=== PATIENT | female | born 1990 | race American Indian/Alaskan Native ===

== ENCOUNTER 2016-11-17 19:32 | Emergency (ER) | payer OTHER ==
[2016-11-17 19:42] VITALS: BP 108/67; TEMP 97.7; BMI 25.0
--- NOTE | 2016-11-17 20:20 | PDOC ---
History of Present Illness - General History Source: Patient Exam Limitations: No Limitations - History of Present Illness Initial Comments: 11/17/16 20:21 The patient is a 26 year old female, who is currently 16-17 weeks with no significant past medical history who presents to the emergency department with dysfunctional vaginal bleeding for today. She notes having red clots on her tissue paper after using the bathroom earlier today. She denies using any pads since the event. LMP was 07/11/16. The patient notes having flu like symptoms, including a cough, about a week ago. She denies recent fevers, chills, headache or dizziness. She denies recent nausea, vomit, diarrhea or constipation. Allergies: NKA Past surgical history: None reported. Social history: Nonsmoker. Denies EtOH use and recreational drug use. Primary Care Physician: Dr.Chumaceiro MARCUM: <Oumar Agarwal - Last Filed: 11/17/16 20:29> <Luiza Andujar - Last Filed: 11/19/16 02:17> - General Chief Complaint: Vaginal Bleeding Stated Complaint: 16WKS/VAGINAL BLEEDING Time Seen by Provider: 11/17/16 19:42 Past History <Oumar Agarwal - Last Filed: 11/17/16 20:29> - Past Medical History Asthma: No Cancer: No Cardiac Disorders: No Diabetes: No HTN: No Seizures: No Thyroid Disease: No - Immunization History Immunization Up to Date: Yes - Psycho/Social/Smoking Cessation Hx Suicidal Ideation: No Smoking History: Never smoked Have you smoked in the past 12 months: No Hx Alcohol Use: No Drug/Substance Use Hx: No Hx Substance Use Treatment: No <Luiza Andujar - Last Filed: 11/19/16 02:17> - Past Medical History Allergies/Adverse Reactions: Allergies Allergy/AdvReac Type Severity Reaction Status Date / Time No Known Drug Allergies Allergy Verified 02/27/15 13:26 Home Medications: Ambulatory Orders NK [No Known Home Medication] 11/17/16 Review of Systems - Review of Systems Able to Perform ROS?: Yes Comments:: 11/17/16 20:24 CONSTITUTIONAL: Absent: fever, chills, diaphoresis, generalized weakness, malaise, loss of appetite HEENT: Absent: rhinorrhea, nasal congestion, throat pain, throat swelling, difficulty swallowing, mouth swelling, ear pain, eye pain, visual Changes CARDIOVASCULAR: Absent: chest pain, syncope, palpitations, irregular heart rate, lightheadedness , peripheral edema RESPIRATORY: Absent: cough, shortness of breath, dyspnea with exertion, orthopnea, wheezing, stridor, hemoptysis GASTROINTESTINAL: Absent: abdominal pain, abdominal distension, nausea, vomiting, diarrhea, constipation, melena, hematochezia GENITOURINARY: +dysfunctional vaginal bleeding. Absent: dysuria, frequency, urgency, hesitancy , hematuria, flank pain, genital pain MUSCULOSKELETAL: Absent: myalgia, arthralgia, joint swelling SKIN: Absent: rash, itching, pallor HEMATOLOGIC/IMMUNOLOGIC: Absent: easy bleeding, easy bruising, lymphadenopathy, frequent infections ENDOCRINE: Absent: unexplained weight gain, unexplained weight loss, heat intolerance, cold intolerance NEUROLOGIC: Absent: headache, focal weakness or paresthesias, dizziness, unsteady gait, seizure, mental status changes, bladder or bowel incontinence PSYCHIATRIC: Absent: anxiety, depression, suicidal or homicidal ideation, hallucinations. <Oumar Agarwal - Last Filed: 11/17/16 20:29> *Physical Exam - Vital Signs Last Vital Signs Temp Pulse Resp BP Pulse Ox 97.7 F 100 H 18 108/67 99 11/17/16 19:36 11/17/16 19:36 11/17/16 19:36 11/17/16 19:36 11/17/16 19:36 - Physical Exam Comments: 11/17/16 20:29 GENERAL: Well developed, well nourished. Awake and alert x 3. No acute distress. HEENT: Normocephalic, atraumatic. PERRLA, EOMI. No conjunctival pallor. Sclera are non- icteric. Moist mucous membranes. Oropharynx is clear. NECK: Supple. Full ROM. No JVD. Carotid pulses 2+ and symmetric, without bruits. No thyromegaly. No lymphadenopathy. CARDIOVASCULAR: Regular rate and rhythm. No murmurs, rubs, or gallops. Distal pulses are 2+ and symmetric. PULMONARY: No evidence of respiratory distress. Lungs clear to auscultation bilaterally. No wheezing, rales or rhonchi. ABDOMINAL: +Perturbent belly. Soft. Non-tender.No rebound or guarding. No organomegaly. Normoactive bowel sounds. MUSCULOSKELETAL Normal range of motion at all joints. No bony deformities or tenderness. No CVA tenderness. EXTREMITIES: No cyanosis. No clubbing. No edema. No calf tenderness. SKIN: Warm and dry. Normal capillary refill. No rashes. No jaundice. NEUROLOGICAL: Alert, awake, appropriate. Cranial nerves 2-12 intact. No deficits to light touch and temperature in face, upper extremities and lower extremities. No motor deficits in the in face, upper extremities and lower extremities. Normoreflexic in the upper and lower extremities. Normal speech. Toes are down- going bilaterally. Gait is normal without ataxia. PSYCHIATRIC: Cooperative. Good eye contact. Appropriate mood and affect. <Oumar Agarwal - Last Filed: 11/17/16 20:29> - Vital Signs Last Vital Signs Temp Pulse Resp BP Pulse Ox 97.7 F 100 H 18 108/67 99 11/17/16 19:36 11/17/16 19:36 11/17/16 19:36 11/17/16 19:36 11/17/16 19:36 <Luiza Andujar - Last Filed: 11/19/16 02:17> Medical Decision Making - Medical Decision Making 11/19/16 02:16 Patient was also seen by the nurse practitioner who did ultrasound and found intrauterine with good heart beat. Patient is going to follow-up with MEDICAL AND HEALTH SERVICES MANAGER. <Luiza Andujar - Last Filed: 11/19/16 02:17> *DC/Admit/Observation/Transfer - Attestations Scribe Attestion: 11/17/16 20:24 Documentation prepared by Oumar Agarwal, acting as biomedical equipment support specialist for Luiza Andujar MD. <Oumar Agarwal - Last Filed: 11/17/16 20:29> <Luiza Andujar - Last Filed: 11/19/16 02:17> Diagnosis at time of Disposition: PCB (post coital bleeding) - Discharge Dispostion Disposition: HOME Condition at time of disposition: Stable - Patient Instructions Printed Discharge Instructions: DI for Vaginal Bleeding During Additional Instructions: Your Discharge Instructions: You must call primary care physician within 24 hours to arrange follow-up. Return to the Emergency Department with any new, persistent or worsening symptoms, for fever, chills, SOB, dizziness or any other concerning changes that may occur. F/W with OBS/MARKETING GRAPHICS SPECIALIST if worsening. Return to the ED if bleeding more than 1 pad per hour
[2016-11-17 21:02] LABS: URINE APPEARANCE CLEAR; URINE BILIRUBIN NEGATIVE (NEGATIVE); URINE BLOOD NEGATIVE (NEGATIVE); URINE COLOR YELLOW; URINE GLUCOSE (UA) NEGATIVE (NEGATIVE); URINE KETONE TRACE (NEGATIVE); URINE LEUK ESTERASE NEGATIVE (NEGATIVE); URINE NITRITE NEGATIVE (NEGATIVE); URINE PROTEIN NEGATIVE (NEGATIVE); URINE UROBILINOGEN NEGATIVE E.U./dl (0.2-1.0)
--- NOTE | 2016-11-17 21:19 | PDOC ---
History of Present Illness - General Chief Complaint: Vaginal Bleeding Stated Complaint: 16WKS/VAGINAL BLEEDING Time Seen by Provider: 11/17/16 19:42 History Source: Patient Exam Limitations: No Limitations - History of Present Illness Initial Comments: 11/17/16 21:14 Patient is a 26-year-old female G 3 P2 LMP July 11 complaining of vaginal spotting and lower abdominal crampy pain since this morning. States pain is in the left lower quadrant 8/10 and had bleeding after wiping. No pad change. Last sexual intercourse was this morning. Denies any dysuria. Also has a cough and a headache 1 week no fever PMD: Dr. Fischer PMHX: as above PSOCHx: neg cig, etoh, drug FamHx: noncontributory ALL: NKDA GENERAL/CONSTITUTIONAL: [No fever or chills. No weakness. No weight change.] HEAD, EYES, EARS, NOSE AND THROAT: [No change in vision. No ear pain or discharge. No sore throat.] CARDIOVASCULAR: [No chest pain or shortness of breath.] RESPIRATORY: [No cough, wheezing, or hemoptysis.] GASTROINTESTINAL: [No nausea, vomiting, diarrhea or constipation. No rectal bleeding.] GENITOURINARY: [No dysuria, frequency, or change in urination.] MUSCULOSKELETAL: [No joint or muscle swelling or pain. No neck or back pain.] SKIN AND BREASTS: [No rash or easy bruising.] NEUROLOGIC: [No headache, vertigo, loss of consciousness, or loss of sensation.] PSYCHIATRIC: [No depression or anxiety.] ENDOCRINE: [No increased thirst. No abnormal weight change.] HEMATOLOGIC/LYMPHATIC: [No anemia, easy bleeding, or history of blood clots.] ALLERGIC/IMMUNOLOGIC: [No hives or skin allergy. No latex allergy.] GENERAL: [The patient is awake, alert, and fully oriented, in no acute distress. ] HEAD: [Normal with no signs of trauma.] EYES: [Pupils equal, round and reactive to light, extraocular movements intact, sclera anicteric, conjunctiva clear.] ENT: [Ears normal, nares patent, oropharynx clear without exudates. Moist mucous membranes.] NECK: [Normal range of motion, supple without lymphadenopathy, JVD, or masses.] LUNGS: [Breath sounds equal, clear to auscultation bilaterally. No wheezes, and no crackles.] HEART: [Regular rate and rhythm, normal S1 and S2 without murmur, rub.] ABDOMEN: [Soft, nontender, normoactive bowel sounds. No guarding, no rebound. No masses.] FOOD MOBILE DRIVER: Small lacerations to the perineum and labia which are bleeding. Os is closed long and posterior. EXTREMITIES: [Normal range of motion, no edema. No clubbing or cyanosis. No cords, erythema, or tenderness.] NEUROLOGICAL: [Cranial nerves II through XII grossly intact. Normal speech, normal gait.] PSYCH: [Normal mood, normal affect.] SKIN: [Warm, Dry, normal turgor, no rashes or lesions noted.] Bedside ultrasound done, (+) IUP, (+) FH 133, adequate fluid Past History - Past Medical History Allergies/Adverse Reactions: Allergies Allergy/AdvReac Type Severity Reaction Status Date / Time No Known Drug Allergies Allergy Verified 02/27/15 13:26 Home Medications: Ambulatory Orders NK [No Known Home Medication] 11/17/16 Asthma: No Cancer: No Cardiac Disorders: No Diabetes: No HTN: No Seizures: No Thyroid Disease: No - Immunization History Immunization Up to Date: Yes - Psycho/Social/Smoking Cessation Hx Suicidal Ideation: No Smoking History: Never smoked Have you smoked in the past 12 months: No Hx Alcohol Use: No Drug/Substance Use Hx: No Hx Substance Use Treatment: No *Physical Exam - Vital Signs Last Vital Signs Temp Pulse Resp BP Pulse Ox 97.7 F 100 H 18 108/67 99 11/17/16 19:36 11/17/16 19:36 11/17/16 19:36 11/17/16 19:36 11/17/16 20:33 ED Treatment Course - ADDITIONAL ORDERS Additional order review: Laboratory Results 11/17/16 20:57 Urine Color Yellow Urine Appearance Clear Urine pH 5.0 D Urine Protein Negative Urine Glucose (UA) Negative Urine Ketones Trace H Urine Blood Negative Urine Nitrite Negative Urine Bilirubin Negative Urine Urobilinogen Negative Ur Leukocyte Esterase Negative Medical Decision Making - Medical Decision Making 11/17/16 21:18 Patient is a 26-year-old female G 3 P2 LMP July 11 complaining of vaginal spotting and lower abdominal crampy pain since this morning. Bleeding symptoms started after sex this morning and exam shows small laceration to the labia and perineum consistent with post coital bleeding. Bedside ultrasound done, (+) IUP, (+) FH 133, adequate fluid UA neg I discussed the physical exam findings, ancillary test results and final diagnoses with the patient. I answered all of the patient's questions. The patient was satisfied with the care received and felt comfortable with the discharge plan and treatment plan. The Patient agrees to follow up with the primary care physician within 24-72 hours. *DC/Admit/Observation/Transfer Diagnosis at time of Disposition: PCB (post coital bleeding) - Discharge Dispostion Disposition: HOME Condition at time of disposition: Stable - Patient Instructions Printed Discharge Instructions: DI for Vaginal Bleeding During Additional Instructions: Your Discharge Instructions: You must call primary care physician within 24 hours to arrange follow-up. Return to the Emergency Department with any new, persistent or worsening symptoms, for fever, chills, SOB, dizziness or any other concerning changes that may occur. F/W with OBS/FOOD MOBILE DRIVER if worsening. Return to the ED if bleeding more than 1 pad per hour
[2016-11-17 21:29] VITALS: PULSE 78
== END 2016-11-17 21:25 | disposition home or self-care (01) ==
LOC: JER 19:32
DX: O26.892 Other specified pregnancy related conditions, second trimester (principal); N93.0 Postcoital and contact bleeding; Z3A.16 16 weeks gestation of pregnancy
CPT/HCPCS: 81003; 99283-25

== ENCOUNTER 2017-03-29 02:04 | Emergency (ER) | payer OTHER ==
[2017-03-29 02:09] VITALS: BP 119/66; PULSE 100; TEMP 98; BMI 29.4
--- NOTE | 2017-03-29 02:21 | PDOC ---
*Physical Exam - Vital Signs Last Vital Signs Temp Pulse Resp BP Pulse Ox 98 F 100 H 20 119/66 100 03/29/17 02:07 03/29/17 02:07 03/29/17 02:07 03/29/17 02:07 03/29/17 02:07 Medical Decision Making - Medical Decision Making 03/29/17 02:20 Pt seen by the Advanced Practice Provider under my direct supervision Ancillary studies reviewed I agree with plan as outlined by the Advanced Practice Provider GLOVE CUFFER Murphy
[2017-03-29] MEDS ORDERED: guaiFENesin 200 MG/10 ML 10 ML UNIT-DOSE CUPS PO ONE (02:26)
[2017-03-29] MEDS ORDERED: SODIUM CHLORIDE 1,000 ML IV STA (02:26)
[2017-03-29] MEDS ORDERED: METOCLOPRAMIDE HCL INJECTION 10 MG/2 ML VIAL IVPB ONE (02:26)
[2017-03-29] MEDS ORDERED: guaiFENesin 200 MG/10 ML 10 ML UNIT-DOSE CUPS ONE (02:32)
[2017-03-29] MEDS ORDERED: METOCLOPRAMIDE HCL INJECTION 10 MG/2 ML VIAL ONE (02:32)
[2017-03-29 02:46] LABS: BASOPHIL 0.7 % (0-2.0); EOSINOPHIL 3.3 % (0-4.5); MCH 24.1 pg (25.7-33.7); MCHC 32.4 g/dl (32.0-36.0); MEAN CELL VOLUME 74.4 fl (80-96); NEUTROPHILS 65.1 % (42.8-82.8); PLATELET COUNT 204 K/MM3 (134-434); RDW 16.3 % (11.6-15.6); WHITE BLOOD COUNT 11.9 K/mm3 (4.0-10.0)
[2017-03-29 03:09] LABS: ALBUMIN 2.7 g/dl (3.4-5.0); ANION GAP 10 (8-16); BILIRUBIN,TOTAL 0.4 mg/dL (0.2-1.0); CALCIUM 8.2 mg/dL (8.5-10.1); CO2 21 mmol/L (21-32); CREATININE 0.4 mg/dL (0.55-1.02); GLUCOSE,RANDOM 89 mg/dL (74-106); SGOT/AST 25 U/L (15-37); SGPT/ALT 16 U/L (12-78); TOT PROT 6.3 g/dl (6.4-8.2)
[2017-03-29 03:10] LABS: ALK PHOS 177 U/L (45-117)
--- NOTE | 2017-03-29 03:44 | PDOC ---
History of Present Illness - General Chief Complaint: Respiratory Stated Complaint: SENT DOWN FROM LABOR - BACK PAIN Time Seen by Provider: 03/29/17 02:11 History Source: Patient Exam Limitations: No Limitations - History of Present Illness Initial Comments: 03/29/17 03:44 26yo Female patient [id number] presents to ED c/o cough, back pain x 1 week. Patient visited with PCP and was prescribed Robitussin and Mucinex per patient with minimal relief. Patient now c/o throat pain, persistent cough. She denies fever, CP, diff breathing, Abd pain, vaginal bleeding, or any other complaints at this time. Patient was seen and evaluated upstairs in OB prior to ED visit. Timing/Duration: reports: week Severity: reports: moderate Episode Description: See HPI Possible Cause: No: no prior episodes, other, allergen exposure, chronic episodes, frequent episodes, illness exposure, irritant gases exposure, occasional episodes, smoke exposure, unknown cause Modifying Factors: worse with: activity, albuterol inhaler, albuterol nebulizer , antibiotics, coughing, lying down, oxygen, rest, other Associated Symptoms: reports: cough, nasal congestion, sore throat. denies: denies symptoms, chest pain/soreness, dizziness, earache, facial pain, fever/ chills, headache, lightheadedness, muscle aches, nasal drainage, shortness of breath, sinus infection, wheezing, other Past History - Travel Traveled outside of the country in the last 30 days: No Close contact w/someone who was outside of country & ill: No - Past Medical History Allergies/Adverse Reactions: Allergies Allergy/AdvReac Type Severity Reaction Status Date / Time No Known Drug Allergies Allergy Verified 03/29/17 02:09 Home Medications: Ambulatory Orders NK [No Known Home Medication] 11/17/16 Asthma: No Cancer: No Cardiac Disorders: No Diabetes: No HTN: No Seizures: No Thyroid Disease: No - Immunization History Immunization Up to Date: Yes - Suicide/Smoking/Psychosocial Hx Smoking History: Never smoked Have you smoked in the past 12 months: No Hx Alcohol Use: No Drug/Substance Use Hx: No Hx Substance Use Treatment: No Respiratory Specific PMHX - Complaint Specific PMHX Angina: No Bronchitis: No Pneumonia: No Pulmonary Embolus: No TB (Tuberculosis): No Review of Systems - Review of Systems Able to Perform ROS?: Yes Is the patient limited Filipino proficient: No Constitutional: No: Chills, Fever HEENTM: Yes: Throat Pain. No: Throat Swelling, Mouth Pain Respiratory: Yes: Cough. No: Orthopnea, Shortness of Breath, SOB with Exertion , SOB at Rest, Stridor, Wheezing, Productive cough Cardiac (ROS): No: Chest Pain, Lightheadedness, Palpitations, Syncope, Chest Tightness ABD/GI: Yes: Other (8 months). No: Nausea, Poor Appetite, Poor Fluid Intake, Vomiting, Abdominal cramping : No: Burning, Dysuria Musculoskeletal: No: Back Pain Integumentary: No: Bruising, Rash Neurological: No: Headache, Weakness, Dizziness All Other Systems: Reviewed and Negative *Physical Exam - Vital Signs Last Vital Signs Temp Pulse Resp BP Pulse Ox 98 F 100 H 20 119/66 100 03/29/17 02:07 03/29/17 02:07 03/29/17 02:07 03/29/17 02:03/29/17 02:07 - Physical Exam General Appearance: Yes: Nourished, Appropriately Dressed. No: Apparent Distress, Mild Distress, Moderate Distress, Severe Distress HEENT: positive: EOMI, ALDO, Normal ENT Inspection, Normal Voice, Symmetrical, TMs Normal, Pharynx Normal. negative: Pharyngeal Erythema, Tonsillar Exudate, Tonsillar Erythema, Nasal Congestion, Rhinorrhea, Sinus Tenderness, TM Bulging, TM Dull, TM Erythema Neck: positive: Trachea midline, Normal Thyroid, Supple. negative: Stridor, Lymphadenopathy (R), Lymphadenopathy (L) Respiratory/Chest: positive: Lungs Clear, Normal Breath Sounds. negative: Chest Tender, Respiratory Distress, Accessory Muscle Use, Labored Respiration, Rapid RR, Stridor, Wheezing Cardiovascular: positive: Regular Rhythm, Regular Rate Gastrointestinal/Abdominal: positive: Normal Bowel Sounds, Soft, Distended (8 months ). negative: Tender, Guarding, Rebound, Tenderness Musculoskeletal: positive: Normal Inspection. negative: CVA Tenderness Extremity: positive: Normal Capillary Refill, Normal Inspection, Normal Range of Motion. negative: Pedal Edema, Swelling, Calf Tenderness, Erythema, Inflammation Integumentary: positive: Normal Color, Dry, Warm Neurologic: positive: agriculture intern II-XII NML intact, Fully Oriented, Alert, Normal Mood/ Affect, Normal Response, Motor Strength 5/5 ED Treatment Course - LABORATORY CBC & Chemistry Diagram: 03/29/17 02:30 03/29/17 02:30 - ADDITIONAL ORDERS Additional order review: Laboratory Results 03/29/17 02:30 Sodium 138 Potassium 4.0 Chloride 107 Carbon Dioxide 21 Anion Gap 10 BUN 6 L D Creatinine 0.4 L Creat Clearance w eGFR > 60 Random Glucose 89 D Calcium 8.2 L Total Bilirubin 0.4 D AST 25 D ALT 16 Alkaline Phosphatase 177 H Total Protein 6.3 L Albumin 2.7 L 03/29/17 02:30 Group A Strep Rapid Antigen - Final Throat 03/29/17 02:30 Influenza Types A,B Antigen (JOSE ALBERTO) - Final Nasopharyngeal Swab - Final 03/29/17 02:30 RBC 4.26 MCV 74.4 L MCHC 32.4 RDW 16.3 H MPV 8.0 Neutrophils % 65.1 Lymphocytes % 22.0 Monocytes % 8.9 Eosinophils % 3.3 D Basophils % 0.7 D - Medications Given in the ED: ED Medications Discontinued Medications Generic Name Dose Route Start Last Admin Trade Name Mark PRN Reason Stop Dose Admin Guaifenesin 10 ml 03/29/17 02:26 03/29/17 02:38 Robitussin - PO 03/29/17 02:27 10 ml ONCE ONE Administration Sodium Chloride 1,000 mls @ 1,000 mls/hr 03/29/17 02:26 03/29/17 02:38 Normal Saline - IV 03/29/17 03:25 1,000 mls/hr ASDIR STA Administration Metoclopramide HCl 10 mg 03/29/17 02:26 03/29/17 02:38 Reglan Injection - IVPB 03/29/17 02:27 10 mg ONCE ONE Administration *DC/Admit/Observation/Transfer Diagnosis at time of Disposition: Viral upper respiratory tract infection - Discharge Dispostion Disposition: HOME Condition at time of disposition: Improved Admit: No - Patient Instructions Printed Discharge Instructions: DI for Viral Upper Respiratory Infection -- Adult Additional Instructions: Follow up with your primary care provider this week. Call to schedule appointment. Take your medications as prescribed/instructed. Drink plenty of fluids. Try throat Lozenges such as Cepacol or Ricola. Check with your doctor first to be sure these are safe during . Return if any concerns for further evaluation. Print Language: TURKMEN - Post Discharge Activity Forms/Work/School Notes: Back to Work
[2017-03-29 04:19] LABS: URINE APPEARANCE SLCLOUDY; URINE BILIRUBIN NEGATIVE (NEGATIVE); URINE BLOOD NEGATIVE (NEGATIVE); URINE COLOR LTYELLOW; URINE GLUCOSE (UA) NEGATIVE (NEGATIVE); URINE KETONE NEGATIVE (NEGATIVE); URINE LEUK ESTERASE TRACE (NEGATIVE); URINE NITRITE NEGATIVE (NEGATIVE); URINE PROTEIN NEGATIVE (NEGATIVE); URINE UROBILINOGEN NEGATIVE mg/dL (0.2-1.0)
[2017-03-29 04:30] LABS: URINE BACTERIA FEW /hpf (NONE SEEN); URINE RBC 1 /hpf (0-3); URINE WBC 41 /hpf (3-5)
== END 2017-03-29 04:56 | disposition home or self-care (01) ==
LOC: JER 02:04
PROC: 3E033GC Introduction of Other Therapeutic Substance into Peripheral Vein, Percutaneous Approach (ICD-10-PCS; principal; 2017-03-29)
DX: O99.89 Other specified diseases and conditions complicating pregnancy, childbirth and the puerperium (principal); J06.9 Acute upper respiratory infection, unspecified; B97.89 Other viral agents as the cause of diseases classified elsewhere; Z3A.35 35 weeks gestation of pregnancy
CPT/HCPCS: 36415; 80053; 81003; 81015; 85025; 87070; 87430; 87804; 96374; 99281-25

== ENCOUNTER 2017-04-27 21:15 | Inpatient (IN) | payer OTHER ==
[2017-04-27] MEDS ORDERED: PROMETHAZINE HCL 25 MG/1 ML VIAL IVPUSH ONE (21:58)
[2017-04-27] MEDS ORDERED: BUTORPHANOL TARTRATE 1 MG/ML VIAL IVPB ONE (21:58)
[2017-04-27] MEDS ORDERED: ELECTROLYTE-148 SOLN 1,000 ML IV SCH (22:00)
--- NOTE | 2017-04-27 22:06 | HP ---
Past Medical History - Primary Care Physician PCP:: Nimisha Farfan - Admission Chief Complaint: Spontaneous Labor History of Present Illness: 26 EDc 04/28/17 ega 39.6 week by usg admitted in spontaneous labor no ROM bleeding or ruq pain GBS neg routine care History Source: Patient - Past Medical History ...: 3 ...Para: 2 ...EDC by Dates: 04/28/17 - Past Surgical History Past Surgical History: Yes: None Hx Myomectomy: No Hx Transabdominal Cerclage: No - Smoking History Smoking history: Never smoked Have you smoked in the past 12 months: No - Alcohol/Substance Use Hx Alcohol Use: No History of Substance Use: reports: None - Social History Usual Living Arrangement: Yes: With Spouse History of Recent Travel: No Home Medications - Allergies Allergies/Adverse Reactions: Allergies Allergy/AdvReac Type Severity Reaction Status Date / Time No Known Drug Allergies Allergy Verified 03/29/17 02:09 - Home Medications Home Medications: Ambulatory Orders NK [No Known Home Medication] 11/17/16 Review of Systems - Review of Systems Constitutional: reports: No Symptoms Eyes: reports: No Symptoms HENT: reports: No Symptoms Neck: reports: No Symptoms Cardiovascular: reports: No Symptoms Respiratory: reports: No Symptoms Gastrointestinal: reports: Abdominal Pain Genitourinary: reports: No Symptoms Breasts: reports: No Symptoms Reported Musculoskeletal: reports: No Symptoms Integumentary: reports: No Symptoms Neurological: reports: No Symptoms Endocrine: reports: No Symptoms Hematology/Lymphatic: reports: No Symptoms Psychiatric: reports: No Symptoms Physical Exam - Maternity Constitutional: Yes: Well Nourished, No Distress Cardiovascular: Yes: WNL, Regular Rate and Rhythm Lungs: Clear to auscultation Breast(s): Yes: WNL - Abdominal Exam/OB Fundal Height: 40 Number of Fetuses: Single Presentation: Vertex Contractions: Yes Regularity: Regular Intensity: Moderate Monitor Mode: External Heart Rate (range): 140 Category: I Accelerations: Non-Uniform Decelerations: None - Vaginal Exam/OB Dilatation (cm): 4 Effacement (%): 80 Amniotic Membrane Status: Intact Presentation: Vertex/Position Station: -1 - Physical Exam Musculoskeletal: Yes: WNL Extremities: Yes: WNL Edema: No Hemorrhage Risk Assessment - Risk Factors Risk Score: 0 Risk Level: Low Risk Problem List - Problems (1) Term Code(s): Z34.80 - ENCOUNTER FOR SUPRVSN OF NORMAL , UNSP TRIMESTER (2) Labor established Code(s): BDA6513 - Assessment/Plan iupa t 39.6 weeks with spontaneous labor gbs neg Cat1 x 2 routine care Contractions Q 7 stadol admit to LD Plan Pitocin aug
[2017-04-27] MEDS ORDERED: OXYTOCIN 15 UNITS/ LR 250 ML 250 ML IVPB SCH (22:15)
[2017-04-27 22:20] LABS: BASOPHIL 0.2 % (0-2.0); MCH 23.1 pg (25.7-33.7); MCHC 32.4 g/dl (32.0-36.0); MEAN CELL VOLUME 71.3 fl (80-96); MEAN PLT VOLUME 8.2 fl (7.5-11.1); NEUTROPHILS 71.4 % (42.8-82.8); PLATELET COUNT 221 K/MM3 (134-434); RDW 18.2 % (11.6-15.6); WHITE BLOOD COUNT 11.3 K/mm3 (4.0-10.0)
[2017-04-27 22:36] VITALS: BMI 29.5
[2017-04-27 22:40] LABS: ANION GAP 9 (8-16); CALCIUM 8.7 mg/dL (8.5-10.1); CO2 21 mmol/L (21-32); CREATININE 0.5 mg/dL (0.55-1.02); GLUCOSE,RANDOM 89 mg/dL (74-106)
--- NOTE | 2017-04-27 23:18 | PN ---
Ante-Partal Exam - Subjective Subjective: Pt doing well in labor Vital Signs: Vital Signs Temperature 97.5 F L 04/27/17 22:00 Pulse Rate 63 04/27/17 23:00 Respiratory Rate 20 04/27/17 23:00 Blood Pressure 146/75 04/27/17 23:00 O2 Sat by Pulse Oximetry (%) Bleeding: No Headache: No Visual changes: No Right upper quadrant pain: No - Contractions Contractions: Yes Regularity: Regular Intensity: Moderate Monitor Mode: External - Exam during Labor Heart Rate: 145 Heart Rate Location: [facility] Category: I Monitor Accelerations: Present Monitor Decelerations: Early Exam: Vaginal Dilatation (cm): 7 cm Effacement (%): 90 Amniotic Membrane Status: Ruptured Amniotic Fluid: Clear Presentation: Vertex Station: -1 - Intrapartum Hemorrhage Risk Risk Score: 0 Risk Level: Low Risk - Assessment/Plan Assessment/Plan: Labor iup at 39.6 week x 2 GBS neg Plan anticipate vaginal delivery
[2017-04-27 23:57] LABS: INR 0.94 (0.82-1.09); PROTHROMBIN TIME (PATIENT) 10.6 SEC (9.98-11.88)
[2017-04-28] LABS: ACTIVATED PTT 25.1 SECONDS (26.9-34.4)
[2017-04-28] MEDS ORDERED: METHYLERGONOVINE MALEATE 0.2 MG/1 ML AMP IM PRN (01:22)
[2017-04-28] MEDS ORDERED: BISACODYL 10 MG SUPP.RECT PR PRN (01:22)
[2017-04-28] MEDS ORDERED: BENZOCAINE 28 GM HEMORRHOIDAL OINTMENT PR PRN (01:22)
[2017-04-28] MEDS ORDERED: WITCH HAZEL 50% (TUCKS) 40 PAD/JAR PAD TP PRN (01:22)
[2017-04-28] MEDS ORDERED: BENZOCAINE 20% 57 GM BOTTLE TP PRN (01:22)
--- NOTE | 2017-04-28 01:22 | PN ---
Delivery - Delivery Vaginal Delivery: No Problems Type of Anesthesia: None Episiotomy/Laceration: None EBL (cc): 250 Delivery, Single - Stages of Labor Placenta: Yes: Spontaneous - Condition of Infant Print Finisher/Video Player Mechanic Present: No Infant Gender: Male - 1 Minute Total Score: 9 5 Minutes Total Score: 9 - Feeding Plan Initial Plan: Elected not to breastfeed exclusively throughout hospitalization
[2017-04-28] MEDS: IBUPROFEN 600 MG TABLET (FP) PO PRN ×3 (01:40→15:15)
[2017-04-28] MEDS ORDERED: oxyCODONE HCL 5 MG TABLET PO ONE (02:15)
[2017-04-28] MEDS ORDERED: TUBERCULIN PPD 5 TU/0.1ML SYRINGE (IN PATIENT USE ONLY) ID ONE (04:00)
--- NOTE | 2017-04-28 08:10 | PN ---
Post Note - Post Date of Delivery: 04/28/17 Post Day: 1 Vital Signs: Vital Signs - 24 hr 04/27/17 04/27/17 04/27/17 21:45 22:00 23:00 Temperature 97.6 F 97.5 F L Pulse Rate 76 61 63 Respiratory 20 20 20 Rate Blood Pressure 135/56 145/79 146/75 O2 Sat by Pulse Oximetry (%) 04/28/17 04/28/17 04/28/17 00:00 01:00 01:30 Temperature 97.8 F Pulse Rate 86 79 71 Respiratory 20 20 18 Rate Blood Pressure 138/87 140/88 138/85 O2 Sat by Pulse 99 Oximetry (%) 04/28/17 04/28/17 04/28/17 01:45 02:00 04:26 Temperature 98.1 F 97.5 F L Pulse Rate 68 71 62 Respiratory 18 18 20 Rate Blood Pressure 134/81 133/80 133/75 O2 Sat by Pulse 98 99 Oximetry (%) Labs: Laboratory Results - last 24 hr 04/27/17 04/27/17 04/27/17 22:10 22:10 22:10 WBC 11.3 H RBC 4.39 Hgb 10.1 L Hct 31.3 L MCV 71.3 L MCH 23.1 L MCHC 32.4 RDW 18.2 H D Plt Count 221 MPV 8.2 Neutrophils % 71.4 Lymphocytes % 21.1 Monocytes % 6.3 Eosinophils % 1.0 Basophils % 0.2 PT with INR 10.60 INR 0.94 PTT (Actin FS) 25.1 L Sodium 138 Potassium 3.9 Chloride 108 H Carbon Dioxide 21 Anion Gap 9 BUN 13 D Creatinine 0.5 L D Random Glucose 89 Calcium 8.7 Blood Type Antibody Screen 04/27/17 22:10 WBC RBC Hgb Hct MCV MCH MCHC RDW Plt Count MPV Neutrophils % Lymphocytes % Monocytes % Eosinophils % Basophils % PT with INR INR PTT (Actin FS) Sodium Potassium Chloride Carbon Dioxide Anion Gap BUN Creatinine Random Glucose Calcium Blood Type B POSITIVE Antibody Screen Negative - Subjective Subjective: Other (perineum pain) - Objective Afebrile: No Breast: Not engorged Abdomen: Soft, Non-tender Uterus: Fundus firm Vagina: Scant lochia Extremities: Non-tender - Assessment/Plan (1) Term Assessment: S/P Normal Plan: Routine Care (2) Labor established Assessment: S/P Normal Plan: Routine Care, Other ([place] Home)
[2017-04-28] MEDS: ACETAMINOPHEN 325 MG TABLET (FP) PO PRN ×2 (09:26→15:15)
[2017-04-29] MEDS: ACETAMINOPHEN 325 MG TABLET (FP) PO PRN ×3 (07:42→19:00)
[2017-04-29] MEDS: IBUPROFEN 600 MG TABLET (FP) PO PRN ×3 (07:42→19:00)
[2017-04-29 08:23] LABS: BASOPHIL 0.5 % (0-2.0); EOSINOPHIL 2.9 % (0-4.5); MCH 22.9 pg (25.7-33.7); MCHC 31.9 g/dl (32.0-36.0); MEAN CELL VOLUME 71.8 fl (80-96); MEAN PLT VOLUME 7.7 fl (7.5-11.1); NEUTROPHILS 61.3 % (42.8-82.8); PLATELET COUNT 196 K/MM3 (134-434); RDW 18.1 % (11.6-15.6); WHITE BLOOD COUNT 10.7 K/mm3 (4.0-10.0)
--- NOTE | 2017-04-29 09:47 | PN ---
Post Progress Note - Subjective Subjective: 26 yo Para 3 status post vaginal delivery, seen and evaluated. Doing well Post Day: 1 Type of Delivery: Vital Signs: Vital Signs Temperature 98.1 F 04/29/17 08:16 Pulse Rate 82 04/29/17 08:16 Respiratory Rate 20 04/29/17 08:16 Blood Pressure 128/82 04/29/17 08:16 O2 Sat by Pulse Oximetry (%) 99 04/28/17 02:00 Breast Exam: Yes: Soft Uterus: Yes: Fundus Firm Abdomen/GI: Yes: Abdomen soft, Tolerating PO Lochia: Yes: Rubra Lochia, amount: Small Extremities: Yes: Calves non-tender Perineum: Yes: Intact Activity: Ambulating - Labs Labs: CBC WBC 10.7 K/mm3 (4.0-10.0) H 04/29/17 07:45 RBC 4.02 M/mm3 (3.60-5.2) 04/29/17 07:45 Hgb 9.2 GM/dL (10.7-15.3) L 04/29/17 07:45 Hct 28.9 % (32.4-45.2) L 04/29/17 07:45 MCV 71.8 fl (80-96) L 04/29/17 07:45 MCH 22.9 pg (25.7-33.7) L 04/29/17 07:45 MCHC 31.9 g/dl (32.0-36.0) L 04/29/17 07:45 RDW 18.1 % (11.6-15.6) H 04/29/17 07:45 Plt Count 196 K/MM3 (134-434) 04/29/17 07:45 MPV 7.7 fl (7.5-11.1) 04/29/17 07:45 Neutrophils % 61.3 % (42.8-82.8) 04/29/17 07:45 Lymphocytes % 28.8 % (8-40) D 04/29/17 07:45 Monocytes % 6.5 % (3.8-10.2) 04/29/17 07:45 Eosinophils % 2.9 % (0-4.5) D 04/29/17 07:45 Basophils % 0.5 % (0-2.0) 04/29/17 07:45 Assessment/Plan Status post vaginal delivery Stable Continue routine care
[2017-04-30] MEDS: ACETAMINOPHEN 325 MG TABLET (FP) PO PRN (10:16)
[2017-04-30] MEDS: IBUPROFEN 600 MG TABLET (FP) PO PRN (10:17)
[2017-04-30 10:55] VITALS: BP 118/56; PULSE 78; TEMP 98.2
--- NOTE | 2017-04-30 11:53 | DS ---
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 Vital Signs: Vital Signs Temperature 98.2 F 04/30/17 10:00 Pulse Rate 78 04/30/17 10:00 Respiratory Rate 20 04/30/17 10:00 Blood Pressure 118/56 04/30/17 10:00 O2 Sat by Pulse Oximetry (%) 99 04/28/17 02:00 Constitutional: Yes: Well Nourished, No Distress Respiratory: Yes: WNL Gastrointestinal: Yes: WNL, Normal Bowel Sounds Pelvis: Yes: WNL ....Post : Yes: Uterus firm, Uterus non-tender Integumentary: Yes: WNL Neurological: Yes: WNL, Alert, Oriented Psychiatric: Yes: WNL, Alert, Oriented Labs: CBC, BMP 04/29/17 07:45 04/27/17 22:10 Delivery - Delivery Vaginal Delivery: No Problems Type of Anesthesia: None Episiotomy/Laceration: None EBL (cc): 250 Delivery, Single - Stages of Labor Date 1st Stage Initiatied: 04/27/17 Time 1st Stage Initiated: 15:00 Date 2nd Stage Initiated: 04/28/17 Time 2nd Stage Initiated: 01:10 Date of Delivery: 04/28/17 Time of Delivery: 01:16 Time Placenta Delivered: 01:25 Placenta: Yes: Spontaneous - Condition of Infant Music Critic/Launch Operator Present: No Gender: Male Position: OA Total Hours ROM (Hrs/Mins): 2HRS 10 MIN - 1 Minute Total Score: 9 5 Minutes Total Score: 9 - Feeding Plan Initial Plan: Elected not to breastfeed exclusively throughout hospitalization Discharge Summary Reason For Visit: LABOR ADMIT Current Active Problems Labor established (Acute) Procedures: Principal: Vaginal Delivery Condition: Good - Instructions Referrals: Nimisha Farfan MD [Staff Physician] - Disposition: HOME - Home Medications Comprehensive Discharge Medication List: Ambulatory Orders Ferrous Sulfate 1 tab PO DAILY 04/28/17 Ibuprofen [Motrin -] 600 mg PO QID PRN #28 tablet 04/28/17 Tablet 1 tab PO DAILY 04/28/17
== END 2017-04-30 14:53 | disposition home or self-care (01) | DRG 560 ==
LOC: JDEL 21:15 → JLDR 21:45 → J3W 04-28 02:59
PROVIDERS: ADMIT Obstetrics & Gynecology; ATTEND Obstetrics & Gynecology
PROC: 10E0XZZ Delivery of Products of Conception, External Approach (ICD-10-PCS; principal; 2017-04-28)
DX: O80 Encounter for full-term uncomplicated delivery (principal); Z3A.39 39 weeks gestation of pregnancy; Z37.0 Single live birth
CPT/HCPCS: 36415; 59409; 71010-TC; 80048; 85025; 85610; 85730; 86593; 86850; 86900; 86901; 87340

== ENCOUNTER 2018-07-05 14:39 | Emergency (ER) | payer OTHER ==
[2018-07-05 15:01] VITALS: BP 121/81; PULSE 99; TEMP 99.8; BMI 27.9
[2018-07-05] MEDS ORDERED: KETOROLAC TROMETHAMINE 60 MG/2 ML VIAL IM ONE (15:52)
--- NOTE | 2018-07-05 15:53 | PDOC ---
History of Present Illness - General Chief Complaint: Respiratory Stated Complaint: R/O FLU Time Seen by Provider: 07/05/18 15:01 History Source: Patient Exam Limitations: No Limitations Past History - Past Medical History Allergies/Adverse Reactions: Allergies Allergy/AdvReac Type Severity Reaction Status Date / Time No Known Drug Allergies Allergy Verified 07/05/18 15:01 Home Medications: Ambulatory Orders Methylprednisolone [Medrol Dose Vahid] 4 mg PO ASDIR #21 tablet 07/05/18 Asthma: No Cancer: No Cardiac Disorders: No COPD: No Diabetes: No HTN: No Seizures: No Thyroid Disease: No - Immunization History Immunization Up to Date: Yes - Suicide/Smoking/Psychosocial Hx Smoking History: Never smoked Have you smoked in the past 12 months: No Hx Alcohol Use: No Drug/Substance Use Hx: No Hx Substance Use Treatment: No *Physical Exam - Vital Signs Last Vital Signs Temp Pulse Resp BP Pulse Ox 99.8 F H 99 H 18 121/81 99 07/05/18 14:59 07/05/18 14:59 07/05/18 14:59 07/05/18 14:59 07/05/18 14:59 Moderate Sedation - Procedure Monitoring Vital Signs: Procedure Monitoring Vital Signs Temperature 99.8 F H 07/05/18 14:59 Pulse Rate 99 H 07/05/18 14:59 Respiratory Rate 18 07/05/18 14:59 Blood Pressure 121/81 07/05/18 14:59 O2 Sat by Pulse Oximetry (%) 99 07/05/18 14:59 *DC/Admit/Observation/Transfer Diagnosis at time of Disposition: Cough Shoulder pain Qualifiers: Chronicity: acute Laterality: bilateral Qualified Code(s): M25.511 - Pain in right shoulder; M25.512 - Pain in left shoulder - Discharge Dispostion Disposition: HOME Condition at time of disposition: Stable Decision to Admit order: No - Referrals Referrals: Quentin Loyola MD [Primary Care Provider] - - Patient Instructions Printed Discharge Instructions: DI for Viral Upper Respiratory Infection -- Adult Additional Instructions: You have an upper respiratory infection, or the common cold. You also have shoulder pain and back pain Your flu testing was negative today. Please take the medrol dose pack as directed for your cough and shoulder pain/ back pain. Drink plenty of fluids. Cough drops and warm tea may help your symptoms as well. Please follow up with her primary care doctor this week. Return to the emergency department if you have difficulty breathing, shortness of breath, worsening pain, nausea, vomiting or if you have any changes in your symptoms. - Post Discharge Activity
[2018-07-05] MEDS ORDERED: KETOROLAC TROMETHAMINE 60 MG/2 ML VIAL ONE (16:52)
== END 2018-07-05 17:46 | disposition home or self-care (01) ==
LOC: JERFT 14:39
PROC: 3E0233Z Introduction of Anti-inflammatory into Muscle, Percutaneous Approach (ICD-10-PCS; principal; 2018-07-05)
DX: J06.9 Acute upper respiratory infection, unspecified (principal); M25.511 Pain in right shoulder; M25.512 Pain in left shoulder
CPT/HCPCS: 71101-TC-LT-FY; 71101-TC-RT-FY; 84703; 87804; 96372; 99281-25

== ENCOUNTER 2020-09-28 07:00 | Inpatient (IN) | payer OTHER ==
[~2020-09-28 07:00] MED LIST: ELECTROLYTE-148 SOLN 1,000 ML IV SCH
[2020-09-28 08:14] VITALS: BMI 32.1
[2020-09-28 08:23] LABS: INR 0.91 (0.83-1.09)
[2020-09-28 08:24] LABS: ACTIVATED PTT 24.7 SECONDS (25.2-36.5)
[2020-09-28 08:25] LABS: BASO % 0.5 % (0-2.0); EOS % 2.8 % (0-4.5); HEMATOCRIT 37.5 % (32.4-45.2); HEMOGLOBIN 12.8 GM/dL (10.7-15.3); LYMPH % 26.8 % (8-40); MCH 29.5 pg (25.7-33.7); MCHC 34.2 g/dl (32.0-36.0); MEAN CELL VOLUME 86.1 fl (80-96); MEAN PLT VOLUME 8.3 fl (7.5-11.1); MONO % 7.7 % (3.8-10.2); NEUT % 62.2 % (42.8-82.8); PLATELET COUNT 180 K/MM3 (134-434); RBC 4.36 M/mm3 (3.60-5.2); RDW 19.4 % (11.6-15.6); WHITE BLOOD COUNT 9.7 K/mm3 (4.0-10.0)
[2020-09-28 08:26] LABS: POTASSIUM 3.8 mmol/L (3.5-5.1)
[2020-09-28 08:29] LABS: CALCIUM 8.6 mg/dL (8.5-10.1)
[2020-09-28 08:30] LABS: BLOOD UREA NITROGEN 9.5 mg/dL (7-18)
[2020-09-28 08:32] LABS: CREATININE 0.5 mg/dL (0.55-1.3)
[2020-09-28] MEDS ORDERED: PROMETHAZINE HCL 25 MG/1 ML VIAL IVPUSH ONE (10:45)
[2020-09-28] MEDS ORDERED: BUTORPHANOL TARTRATE 2 MG/ML VIAL IVPB ONE (10:45)
[2020-09-28] MEDS ORDERED: OXYTOCIN 30 UNITS in 0.9% NS 30 UNIT/500 ML INFUS.BAG IVPB SCH (11:15)
[2020-09-28] MEDS: ELECTROLYTE-148 SOLN 1,000 ML IV SCH ×2 (13:35→15:06)
[2020-09-28] MEDS ORDERED: PCA PUMP NR ONE (14:00)
[2020-09-28] MEDS ORDERED: FENTANYL/BUPIVACAINE/NS/PF - PCEA - 50 ML DISP.SYRIN EP ONE (14:00)
[2020-09-28] MEDS: FENTANYL/BUPIVACAINE/NS/PF - PCEA - 50 ML DISP.SYRIN EP SCH (14:30)
[2020-09-28] MEDS ORDERED: NALOXONE HCL 0.4 MG/ML VIAL IVPUSH PRN (14:54)
[2020-09-28] MEDS ORDERED: FENTANYL/BUPIVACAINE/NS/PF - PCEA - 50 ML DISP.SYRIN EP SCH (15:13)
[2020-09-28] MEDS ORDERED: OXYTOCIN 20 UNITS in 0.9% NS 20 UNIT/1,000 ML INFUS.BAG IV ONE (16:37)
[2020-09-28] MEDS ORDERED: LIDOCAINE HCL 1% PRESERVATIVE FREE - 30ML VIAL ONE (16:37)
[2020-09-28] MEDS: OXYTOCIN 20 UNITS in 0.9% NS 20 UNIT/1,000 ML INFUS.BAG IV SCH (17:15)
[2020-09-28] MEDS ORDERED: WITCH HAZEL 50% (TUCKS) 40 PAD/JAR PAD TP PRN (17:24)
[2020-09-28] MEDS ORDERED: BISACODYL 10 MG SUPP.RECT RC PRN (17:24)
[2020-09-28] MEDS ORDERED: METHYLERGONOVINE MALEATE 0.2 MG/1 ML AMP IM PRN (17:24)
[2020-09-28] MEDS ORDERED: BENZOCAINE 20% 57 GM BOTTLE TP PRN (17:24)
[2020-09-28] MEDS ORDERED: BENZOCAINE 28 GM HEMORRHOIDAL OINTMENT TP PRN (17:24)
[2020-09-28 17:39] LABS: CORD HCO3 24.7 mmHg (20-29); CORD PCO2 56.3 mmHg (30-78)
[2020-09-28 17:39] LABS: CORD BASE EXCESS -2.2 mmol/L (0-2); CORD HCO3 22.9 mmHg (20-29); CORD PCO2 40.7 mmHg (30-78); CORD pH 7.368 (7.14-7.44)
[2020-09-28] MEDS: ACETAMINOPHEN 325 MG TABLET (FP) PO PRN (20:55)
[2020-09-28] MEDS: IBUPROFEN 600 MG TABLET (FP) PO PRN (20:56)
[2020-09-28] MEDS: FERROUS SO4 325 MG TABLET (FP) PO SCH (20:57)
[2020-09-29] MEDS: ACETAMINOPHEN 325 MG TABLET (FP) PO PRN ×3 (01:49→19:47)
[2020-09-29] MEDS: IBUPROFEN 600 MG TABLET (FP) PO PRN ×2 (01:49→19:48)
[2020-09-29 08:23] LABS: BASO % 0.2 % (0-2.0); HEMATOCRIT 34.4 % (32.4-45.2); HEMOGLOBIN 11.8 GM/dL (10.7-15.3); LYMPH % 19.8 % (8-40); MCH 29.7 pg (25.7-33.7); MCHC 34.2 g/dl (32.0-36.0); MEAN CELL VOLUME 86.8 fl (80-96); MEAN PLT VOLUME 8.5 fl (7.5-11.1); MONO % 6.2 % (3.8-10.2); NEUT % 71.8 % (42.8-82.8); PLATELET COUNT 154 K/MM3 (134-434); RBC 3.96 M/mm3 (3.60-5.2); RDW 19.3 % (11.6-15.6); WHITE BLOOD COUNT 12.8 K/mm3 (4.0-10.0)
[2020-09-29] MEDS: PRENATAL VITAMINS W/ FOLIC ACID TABLET (FP) PO SCH (10:36)
[2020-09-29] MEDS: FERROUS SO4 325 MG TABLET (FP) PO SCH ×2 (10:36→18:47)
[2020-09-29] MEDS: OXYTOCIN 20 UNITS in 0.9% NS 20 UNIT/1,000 ML INFUS.BAG IV SCH (19:46)
[2020-09-29] MEDS: FENTANYL/BUPIVACAINE/NS/PF - PCEA - 50 ML DISP.SYRIN EP SCH (19:46)
[2020-09-29] MEDS ORDERED: SENNOSIDES/DOCUSATE COMBO (SENNA PLUS) TABLET (UD) PO PRN (22:00)
[2020-09-30] MEDS: FERROUS SO4 325 MG TABLET (FP) PO SCH (08:35)
[2020-09-30] MEDS: ACETAMINOPHEN 325 MG TABLET (FP) PO PRN (11:06)
[2020-09-30] MEDS: PRENATAL VITAMINS W/ FOLIC ACID TABLET (FP) PO SCH (11:06)
[2020-09-30] MEDS: IBUPROFEN 600 MG TABLET (FP) PO PRN (11:06)
[2020-09-30 12:45] VITALS: BP 132/83; PULSE 82; TEMP 97.6
== END 2020-09-30 14:05 | disposition home or self-care (01) | DRG 560 ==
LOC: JLDR 07:00 → J3W 18:25
PROVIDERS: ADMIT Obstetrics & Gynecology; ATTEND Obstetrics & Gynecology
PROC: 10E0XZZ Delivery of Products of Conception, External Approach (ICD-10-PCS; principal; 2020-09-28)
PROC: 0U7C7ZZ Dilation of Cervix, Via Natural or Artificial Opening (ICD-10-PCS; 2020-09-28)
DX: O42.02 Full-term premature rupture of membranes, onset of labor within 24 hours of rupture (principal); Z3A.38 38 weeks gestation of pregnancy; Z37.0 Single live birth
CPT/HCPCS: 36415; 36600; 59409; 80048; 82803; 85025; 85610; 85730; 86850; 86900; 86901; C9803; U0003; U0005